=== PATIENT | female | born 1995 | race Caucasian/White ===

== ENCOUNTER 2019-03-08 17:55 | Emergency (ER) | payer OTHER, SELFPAY ==
[2019-03-08 18:07] VITALS: BP 119/80; TEMP 36.7; BMI 19.8
[2019-03-08 18:10] VITALS: BP 119/80; PULSE 82; RESP 14; TEMP 36.7; O2SAT 100; BMI 19.8
--- NOTE | 2019-03-08 18:13 | DI.RAD.S_ITS ---
PROCEDURE: XR ANKLE LT MIN 3V INDICATIONS: L ankle pain post fall TECHNIQUE: 3 views of the ankle were acquired. COMPARISON: None. FINDINGS: Bones: No fractures or dislocations. Ankle mortise is normally aligned. No suspicious bony lesions. Soft tissues: No tibiotalar joint effusion. Achilles tendon appears normal. IMPRESSION: No acute ankle fracture or dislocation. Dictated by: Armando Jimenez M.D. on 03/08/2019 at 18:27 Approved by: Armando Jimenez M.D. on 03/08/2019 at 18:28
--- NOTE | 2019-03-08 19:46 | ED.LOWEXIN ---
HPI - Extremity Injury (Lower) <OVI Saul - Last Filed: 03/08/19 19:57> General Chief Complaint: Extremity Injury, Lower Stated Complaint: fall down stairs at work Time Seen by Provider: 03/08/19 19:03 Source: patient Mode of arrival: ambulatory Limitations: no limitations History of Present Illness HPI Narrative: 24-year-old healthy female presents emergency department today complaining of left ankle pain after a fall. She states she slipped and fell down about 7 steps. She complains of a dull aching 5/10 left ankle pain that was worse with movement. She was not able to bear weight on her ankle after the fall. Patient has noted bruising and swelling to the lateral aspect of her ankle. She denies any head trauma, fevers, leg pain, knee pain, abdominal pain, nausea, vomiting, loss of consciousness, or other injuries. Related Data Allergies Allergy/AdvReac Type Severity Reaction Status Date / Time amoxicillin Allergy Verified 03/08/19 18:07 Penicillins Allergy Verified 03/08/19 18:07 Review of Systems <OVI Saul - Last Filed: 03/08/19 19:57> Review of Systems Narrative: REVIEW OF SYSTEMS: GENERAL: Denies fever or chills. HENT: No head trauma. EYES: No double vision or vision loss. CARDIOVASCULAR: No chest pain or syncope. RESPIRATORY: No shortness of breath or cough. GASTROINTESTINAL: No nausea, vomiting, diarrhea, or constipation. GENITOURINARY: No flank pain or dysuria. MUSCULOSKELETAL: Complains of left buttock ANCA pain, see HPI. INTEGUMENTARY: No rash, lesions, or pruritus. NEURO: No numbness, tingling. PSYCH: No behavior or mood changes. PFSH <OVI Saul - Last Filed: 03/08/19 19:57> Medical History No significant past surgical history (Acute) Social History Smoking Status: Never smoker Social History Smoking Status: Never smoker Exam <OVI Saul - Last Filed: 03/08/19 19:57> Initial Vital Signs Initial Vital Signs: Vital Signs Temperature 98.1 F 03/08/19 18:07 Blood Pressure 119/80 03/08/19 18:07 PHYSICAL EXAMINATION: GENERAL: Well groomed, alert, and cooperative. Answers questions promptly and appropriately. Vital signs noted. HENT: Normocephalic, atraumatic. EYES: Symmetrical, sclera white, no periorbital swelling. RESPIRATORY: Normal respiratory rate, trachea midline, airway patent. No stridor, nasal flaring or accessory muscle use. MUSCULOSKELETAL: Tenderness on palpation to lateral malleolus, surroundings swelling and ecchymosis. Pain was reproduced with inversion of ankle. No deformities noted. Normal gait and coordination. Equal tone and mass bilaterally. EXTREMITIES: CMS intact. Pedal Pulses 2+ and equal bilaterally. SKIN: Warm, dry, soft, appropriate color for ethnicity. No lesions, rashes, or wounds. NEURO: Alert and Oriented X 3. No sensory deficits. PSYCH: Appropriate affect and mood. <Yves Snowden DO - Last Filed: 03/08/19 23:22> Initial Vital Signs Initial Vital Signs: Vital Signs Temperature 98.1 F 03/08/19 18:07 Blood Pressure 119/80 03/08/19 18:07 Procedures <OVI Saul - Last Filed: 03/08/19 19:57> Orthopedic Splinting/Casting Injury #1: Side: left Lower Extremity Injury Location: ankle Lower Extremity Immobilizer: Huber wrap Other Orthopedic Equipment: crutches Post splinting neuro exam: intact Post splinting vascular exam: intact Placed by: Provider Course <OVI Saul - Last Filed: 03/08/19 19:57> Course Course Narrative: Patient was given an Huber bandage and crutches help with pain. Orders Ordered: ED Orders 03/08/19 18:13 XR ankle LT min 3V Stat Vital Signs Vital signs: Vital Signs - 8 hr 03/08/19 18:07 03/08/19 18:10 Temperature 98.1 F 98.1 F Pulse Rate 82 Respiratory Rate 14 Blood Pressure 119/80 119/80 Pulse Oximetry 100 <Yves Snowden DO - Last Filed: 03/08/19 23:22> Orders Ordered: ED Orders 03/08/19 18:13 XR ankle LT min 3V Stat Vital Signs Vital signs: Vital Signs - 8 hr 03/08/19 18:07 03/08/19 18:10 Temperature 98.1 F 98.1 F Pulse Rate 82 Respiratory Rate 14 Blood Pressure 119/80 119/80 Pulse Oximetry 100 [facility] - Extremity Injury (Lower) <Jerica OkeefeOVI - Last Filed: 03/08/19 19:57> Medical Records Attestation: I reviewed the patient's medical records. Lab Data Attestation: I reviewed the patient's lab results. Imaging Data Ankle XR: Radiologist's impression: [address] [address] XRay Report Signed Patient: Lissette Pisano PMR#: [id number] : 1995Acct:[id number] Age/Sex: 24 / FDate of Service: 03/08/19 Loc: ED Accession Number: [id number] Procedure: XR ankle LT min 3V Ordering Provider: Yves Snowden D.O. PROCEDURE: XR ANKLE LT MIN 3V INDICATIONS: L ankle pain post fall TECHNIQUE: 3 views of the ankle were acquired. COMPARISON: None. FINDINGS: Bones: No fractures or dislocations. Ankle mortise is normally aligned. No suspicious bony lesions. Soft tissues: No tibiotalar joint effusion. Achilles tendon appears normal. IMPRESSION: No acute ankle fracture or dislocation. Dictated by: Armando Jimenze M.D. on 03/08/2019 at 18:27 Approved by: Armando Jimenez M.D. on 03/08/2019 at 18:28 [facility] Narrative Medical decision making narrative: Differential includes sprain (most likely due to tenderness, difficulty weight-bearing, mechanism of injury), contusion, and fracture (less likely due to negative x-ray.) Strict return precautions given and follow-up instructions discussed. Discharge Plan Departure Patient Disposition: Home Clinical Impression: Ankle sprain and strain Discharge Date/Time: 03/08/19 19:40 Instructions: Ankle Sprain Activity Restrictions/Additional Instructions: Thank you for entrusting me with your care today. As discussed, your x-rays are negative for any fractures. You have sprained your ankle. You may use the crutches or Huber bandage as needed for pain. Follow up with your primary care provider in the next 10-14 days if your symptoms do not begin to get a little better. You may take ibuprofen 400-600 mg every 6 hours for the next 3 days to decrease inflammation. Return to the emergency department if he develops chest pain, shortness of breath, syncope, seizures, or any other concerning symptoms. <Yves Snowden, DO - Last Filed: 03/08/19 23:22> Sign Out Provider Sign Out Attestation: I was available for consultation during this patient's emergency department encounter
== END 2019-03-08 19:40 | disposition home or self-care (01) ==
PROVIDERS: Emergency Provider Nurse Practitioner
DX: S93.402A Sprain of unspecified ligament of left ankle, initial encounter (principal); W10.8XXA Fall (on) (from) other stairs and steps, initial encounter; Y99.0 Civilian activity done for income or pay
CPT/HCPCS: 73610; 99282; 99283

== ENCOUNTER → 2019-06-05 09:15 | Outpatient (CLI) | payer OTHER, SELFPAY ==
--- NOTE | 2019-06-05 | DI.RAD.S_ITS ---
PROCEDURE: XR ANKLE LT MIN 3V INDICATIONS: LEFT ANKLE PAIN TECHNIQUE: 3 views of the ankle were acquired. COMPARISON: [facility], CR, XR ANKLE LT MIN 3V, 03/08/2019, 18:12. FINDINGS: Bones: No fractures or dislocations. Ankle mortise is normally aligned. No suspicious bony lesions. Soft tissues: No tibiotalar joint effusion. Achilles tendon appears normal. IMPRESSION: Normal for age, source of current pain after trauma symptoms is not seen. Dictated by: Arnaud Lewis M.D. on 06/05/2019 at 9:48 Approved by: Arnaud Lewis M.D. on 06/05/2019 at 9:49
== END ==
PROVIDERS: PCP Nurse Practitioner Family; Visit Provider Nurse Practitioner Family
DX: M25.572 Pain in left ankle and joints of left foot (principal)
CPT/HCPCS: 73610

== ENCOUNTER → 2019-07-02 17:40 | Outpatient (CLI) | payer OTHER, SELFPAY ==
--- NOTE | 2019-07-02 | DI.MRI.S_ITS ---
PROCEDURE: MR ANKLE LT WO CON INDICATIONS: Pain in left ankle and joints of left foot TECHNIQUE: Noncontrast sagittal T1 spin echo and T2 fast spin echo with fat saturation, axial proton density fast spin echo and T2 fast spin echo with fat saturation, coronal T1 spin echo and T2 fast spin echo with fat saturation through the ankle/hindfoot. COMPARISON: None. FINDINGS: Image quality: Excellent. Bones and joints: No discrete fracture seen. Focal marrow edema involving the medial malleolus No specific evidence for hind foot coalition. No evidence of osteochondral defect. Tibiotalar joint effusion Medial structures: The posterior tibialis, flexor digitorum longus, and flexor hallucis longus tendons are intact. Mild posterior tibialis tenosynovitis The posterior tibial neurovascular bundle appears normal within the tarsal tunnel, without extrinsic mass effect. The deep layer (anterior and posterior tibiotalar ligaments) and superficial layer (tibionavicular, tibiospring, and tibiocalcaneal ligaments) of the deltoid ligament appear normal. The spring ligament components (superomedial calcaneonavicular, medioplantar oblique calcaneonavicular, and inferoplantar longitudinal ligaments) are intact. Lateral structures: The anterior talofibular ligament is markedly thickened and there is diffuse soft tissue edema. There appear to be some intact fibers Calcaneofibular and posterior talofibular ligaments appear intact More superiorly, the anterior and posterior tibiofibular ligaments appear intact, as is the intermalleolar ligament. The tibiofibular syndesmosis is normal in width at 2 mm or less. The peroneus longus and brevis tendons demonstrate normal location and morphology. There is minimal peroneal tenosynovitis Adjacent bony peroneal tubercle and retrotrochlear prominence are normal in size. The sinus tarsi demonstrates normal fatty signal, without edema, fibrosis, or cyst formation. Visualized sinus tarsi components (cervical ligament, interosseous talocalcaneal ligament, roots of the inferior extensor retinaculum) appear normal. The calcaneonavicular and calcaneocuboid components of the bifurcate ligament appear intact. The dorsal calcaneocuboid ligament appears intact. Anterior structures: The tibialis anterior, extensor hallucis longus, and extensor digitorum longus tendons appear intact. The dorsal talonavicular ligament appears intact. Posterior and plantar structures: Achilles tendon is intact. Medial and lateral bands of the plantar fascia are of normal thickness. No abductor digiti quinti muscle atrophy to suggest López neuropathy. IMPRESSION: Partial rupture/sprain of the anterior talofibular ligament. Focal marrow edema involving the medial malleolus, which could represent acute marrow contusion. Tibiotalar joint effusion Mild posterior tibialis tenosynovitis Dictated by: Bridger Simeon M.D. on 07/03/2019 at 9:38 Approved by: Bridger Simeon M.D. on 07/03/2019 at 10:00
== END ==
PROVIDERS: Family Provider Nurse Practitioner Family; PCP Nurse Practitioner Family; Visit Provider Orthopaedic Surgery Foot and Ankle Surgery
DX: M25.572 Pain in left ankle and joints of left foot (principal); S93.492A Sprain of other ligament of left ankle, initial encounter; M25.472 Effusion, left ankle; M65.872 Other synovitis and tenosynovitis, left ankle and foot
CPT/HCPCS: 73721

== ENCOUNTER 2022-02-09 11:05 | Emergency (ER) | payer OTHER, SELFPAY ==
[2022-02-09] VITALS (20 sets, daily range): BP systolic 92–119; BP diastolic 48–73; PULSE 100–125; RESP 15–23; TEMP 36.4–37.1; O2SAT 93–100; BMI 16.4
[2022-02-09 12:00] LABS: Add Manual Diff / Slide Review NO; Basophils Absolute Auto 0 /uL (0-100); Basophils Percent Auto 0.5 % (0-2); Eosinophils Absolute Auto 500 /uL (0-450); Eosinophils Percent Auto 6.2 % (2-4); Hematocrit 33.9 % (36-46); Hemoglobin 11.3 g/dL (12.0-16.0); Lymphocytes Absolute Auto 1500 /uL (1100-4500); Lymphocytes Percent Auto 19.1 % (25-40); Mean Corpuscular HGB Conc 33.1 % (30-36); Mean Corpuscular Hemoglobin 26.1 PG (26-34); Mean Corpuscular Volume 78.8 fL (80-100); Monocytes Absolute Auto 1300 /uL (0-900); Monocytes Percent Auto 16.4 % (3-14); Neutrophils Absolute Auto 4700 /uL (1500-7000); Neutrophils Percent Auto 57.8 % (50-75); Platelet Count 394 X10^3/uL (150-400); Red Blood Cell Count 4.31 X10^6/uL (4.0-5.2); White Blood Cell Count 8.1 X10^3/uL (4.5-11.0)
[2022-02-09 12:16] LABS: Alanine Aminotransferase 12 IU/L (<35); Albumin 3.9 g/dL (3.5-5.0); Albumin Globulin Ratio 1.1 (1.0-2.8); Alkaline Phosphatase 52 U/L (38-126); Aspartate Aminotransferase 19 IU/L (14-36); BUN Creatinine Ratio 6.2 (6-22); Bilirubin Total 0.2 mg/dL (0.2-1.3); Blood Urea Nitrogen 5 mg/dL (7-17); Calcium 8.4 mg/dL (8.4-10.2); Carbon Dioxide 29 mmol/L (22-32); Chloride 104 mmol/L (98-107); Estimated Glomerular Filt Rate > 60 mL/min (>60); Globulin 3.4 g/dL (1.7-4.1); Glucose 111 mg/dL (70-100); HEMOLYSIS < 15 (0-50); Lipase 56 U/L (23-300); Sodium 140 mmol/L (137-145); Total Protein 7.3 g/dL (6.3-8.2)
--- NOTE | 2022-02-09 12:40 | ED_ITS ---
HPI - Abdominal Pain General Chief Complaint: Abdominal Pain Stated Complaint: Abd pain, bloody stool, fever Time Seen by Provider: 02/09/22 12:23 Mode of arrival: Family Vehicle History of Present Illness HPI narrative: Patient is a healthy 26-year-old female who presents with rectal bleeding ongoing for last 2 weeks. As he was seen evaluated by her primary care provider who did some rectal swabs and set her up for a colonoscopy. She has a colonoscopy scheduled as an outpatient in 2 days. She says she has lost about 5 lb. Every time she eats something she has abdominal pain and has suicide on the toilet. She has been mildly anemic she is not sure if her numbers. This morning however she woke up and was febrile with a temperature of 100? with severe pain. She now is feeling a little bit better Related Data Allergies Allergy/AdvReac Type Severity Reaction Status Date / Time amoxicillin Allergy Verified 02/09/22 11:34 Penicillins Allergy Verified 02/09/22 11:34 Review of Systems Review of Systems Narrative: GENERAL: Denies chills, fatigue, malaise, fever, sweats, travel HEENT: Denies sinus pain, ear pain, sore throat, difficulty swallowing, neck pain RESPIRATORY: Denies dyspnea, cough, wheezing, hemoptysis, sputum. CARDIOVASCULAR: Denies chest pain, palpitations, orthopnea, edema GASTROINTESTINAL: See HPI : Denies dysuria, frequency, incontinence, hematuria, urinary retention, flank pain. MUSCULOSKELETAL: Denies weakness, joint pain, or bony pain SKIN: No rash, no erythema, no pruritus NEUROLOGIC: Denies weakness, dizziness, headache, numbness, change in speech, c onfusion PSYCHIATRIC: No concerning psychosocial issues. 12 point review of systems is negative except for those stated above and HPI Patient History Surgical History No significant past surgical history Social History Smoking Status: Never smoker Smoking Status: Never smoker alcohol intake frequency: holidays/special occasions only Substance Use Type: does not use Exam Initial Vital Signs Initial Vital Signs: Vital Signs Temperature 97.5 F L 02/09/22 11:28 Pulse Rate 125 H 02/09/22 11:28 Respiratory Rate 16 02/09/22 11:28 Blood Pressure 108/73 02/09/22 11:28 Pulse Oximetry 100 02/09/22 11:28 Oxygen Delivery Method 02/09/22 11:28 GENERAL: Alert pleasant 26-year-old female and in no acute distress. HEENT: Head atraumatic,EOMI, pupils reactive, face symmetric, moist mucous membranes CARDIOVASCULAR: Regular rate and rhythm without murmurs, rubs or gallops. RESPIRATORY: Breath sounds equal bilaterally, no wheezes rales or rhonchi. ABDOMEN: Soft, nontender. Normoactive bowel sounds all 4 quadrants. No guarding or rebound. EXTREMITIES: Normal range of motion, no clubbing or edema. Neurovascularly intact NEUROLOGICAL: Alert and oriented x4.Normal gait and speech. SKIN: Warm, dry, no laceration, no petechiae, no rashes or lesions. Course Orders Ordered: ED Orders 02/09/22 12:32 COVID19 -Nasal RAPID/Pre-Proc Stat 02/09/22 12:35 Urine Culture Stat Urine Microscopic Stat 02/09/22 12:46 CT abdomen pelvis w con Stat 02/09/22 15:26 EKG-12 Lead Routine 02/09/22 15:52 CT angio chest PE protocol Stat Discontinued Medications Sodium Chloride (Normal Saline 0.9%) 1,000 mls @ 1,000 mls/hr IV BOLUS ONE Stop: 02/09/22 13:45 Last Infusion: 02/09/22 15:12 Dose: 0 mls/hr Documented By: Admin: 02/09/22 12:54 Dose: 1,000 mls/hr Documented By: SONNY Sodium Chloride (Normal Saline 0.9%) 1,000 mls @ 1,000 mls/hr IV BOLUS ONE Stop: 02/09/22 15:45 Last Infusion: 02/09/22 16:58 Dose: 0 mls/hr Documented By: Admin: 02/09/22 15:12 Dose: 1,000 mls/hr Documented By: RAMON Vital Signs Vital signs: Vital Signs - 8 hr 02/09/22 13:34 02/09/22 14:00 02/09/22 14:30 Pulse Rate 106 H 105 H 108 H Respiratory Rate 17 23 19 Blood Pressure Pulse Oximetry 93 98 97 02/09/22 15:00 02/09/22 15:11 02/09/22 15:11 Pulse Rate 104 H 100 H Respiratory Rate 20 19 Blood Pressure 102/55 L Pulse Oximetry 98 100 02/09/22 15:19 02/09/22 15:19 02/09/22 15:30 Pulse Rate 118 H Respiratory Rate 18 Blood Pressure 112/64 99/58 L Pulse Oximetry 100 02/09/22 15:30 02/09/22 16:00 02/09/22 16:00 Pulse Rate 114 H 105 H Respiratory Rate 21 21 Blood Pressure 92/55 L Pulse Oximetry 100 100 02/09/22 16:21 02/09/22 16:21 02/09/22 16:26 Pulse Rate 108 H 107 H Respiratory Rate 23 21 Blood Pressure 97/48 L Pulse Oximetry 100 99 02/09/22 16:26 02/09/22 16:30 02/09/22 16:30 Pulse Rate 104 H Respiratory Rate 15 Blood Pressure 97/52 L 93/52 L Pulse Oximetry 99 02/09/22 16:47 02/09/22 16:47 02/09/22 16:51 Pulse Rate 110 H Respiratory Rate Blood Pressure 107/59 L 99/58 L Pulse Oximetry 99 02/09/22 16:51 Pulse Rate 109 H Respiratory Rate Blood Pressure Pulse Oximetry 98 MDM - Abdominal Pain Lab Data Result diagrams: 02/09/22 11:51 02/09/22 11:51 Labs: Lab Results 02/09/22 02/09/22 02/09/22 Range/Units 11:51 11:51 11:51 WBC 8.1 (4.5-11.0) X10^3/uL RBC 4.31 (4.0-5.2) X10^6/uL Hgb 11.3 L (12.0-16.0) g/dL Hct 33.9 L (36-46) % MCV 78.8 L (80-100) fL MCH 26.1 (26-34) PG MCHC 33.1 (30-36) % RDW 14.0 (11.6-14.8) % Plt Count 394 (150-400) X10^3/uL Neut % (Auto) 57.8 (50-75) % Lymph % (Auto) 19.1 L (25-40) % Burke % (Auto) 16.4 H (3-14) % Eos % (Auto) 6.2 H (2-4) % Baso % (Auto) 0.5 (0-2) % Neut # (Auto) 4700 (9121-2448) /uL Lymph # (Auto) 1500 (5628-6554) /uL Burke # (Auto) 1300 H (0-900) /uL Eos # (Auto) 500 H (0-450) /uL Baso # (Auto) 0 (0-100) /uL D-Dimer (<500) ng/ml Sodium 140 (137-145) mmol/L Potassium 4.0 (3.4-5.1) mmol/L Chloride 104 (98-107) mmol/L Carbon Dioxide 29 (22-32) mmol/L BUN 5 L (7-17) mg/dL Creatinine 0.81 (0.52-1.04) mg/dL Estimated GFR > 60 (>60) mL/min BUN/Creatinine Ratio 6.2 (6-22) Glucose 111 H (70-100) mg/dL Lactate 1.7 (0.7-2.1) mmol/L Calcium 8.4 (8.4-10.2) mg/dL Total Bilirubin 0.2 (0.2-1.3) mg/dL AST 19 (14-36) IU/L ALT 12 (<35) IU/L Alkaline Phosphatase 52 (38-126) U/L Total Protein 7.3 (6.3-8.2) g/dL Albumin 3.9 (3.5-5.0) g/dL Globulin 3.4 (1.7-4.1) g/dL Albumin/Globulin Ratio 1.1 (1.0-2.8) Lipase 56 (23-300) U/L Procalcitonin (<0.5) ng/mL Urine RBC (0-5/HPF) Urine WBC (0-5/HPF) Ur Squamous Epith Cells (0-5/HPF) Amorphous Sediment Urine Bacteria (None) Ur Culture Indicated? SARS-CoV-2 (PCR) (Negative) 02/09/22 02/09/22 02/09/22 Range/Units 11:51 11:51 12:32 WBC (4.5-11.0) X10^3/uL RBC (4.0-5.2) X10^6/uL Hgb (12.0-16.0) g/dL Hct (36-46) % MCV (80-100) fL MCH (26-34) PG MCHC (30-36) % RDW (11.6-14.8) % Plt Count (150-400) X10^3/uL Neut % (Auto) (50-75) % Lymph % (Auto) (25-40) % Burke % (Auto) (3-14) % Eos % (Auto) (2-4) % Baso % (Auto) (0-2) % Neut # (Auto) (2330-9852) /uL Lymph # (Auto) (3796-5141) /uL Burke # (Auto) (0-900) /uL Eos # (Auto) (0-450) /uL Baso # (Auto) (0-100) /uL D-Dimer 1881 H (<500) ng/ml Sodium (137-145) mmol/L Potassium (3.4-5.1) mmol/L Chloride (98-107) mmol/L Carbon Dioxide (22-32) mmol/L BUN (7-17) mg/dL Creatinine (0.52-1.04) mg/dL Estimated GFR (>60) mL/min BUN/Creatinine Ratio (6-22) Glucose (70-100) mg/dL Lactate (0.7-2.1) mmol/L Calcium (8.4-10.2) mg/dL Total Bilirubin (0.2-1.3) mg/dL AST (14-36) IU/L ALT (<35) IU/L Alkaline Phosphatase (38-126) U/L Total Protein (6.3-8.2) g/dL Albumin (3.5-5.0) g/dL Globulin (1.7-4.1) g/dL Albumin/Globulin Ratio (1.0-2.8) Lipase (23-300) U/L Procalcitonin 0.06 (<0.5) ng/mL Urine RBC (0-5/HPF) Urine WBC (0-5/HPF) Ur Squamous Epith Cells (0-5/HPF) Amorphous Sediment Urine Bacteria (None) Ur Culture Indicated? SARS-CoV-2 (PCR) Negative (Negative) 02/09/22 Range/Units 12:35 WBC (4.5-11.0) X10^3/uL RBC (4.0-5.2) X10^6/uL Hgb (12.0-16.0) g/dL Hct (36-46) % MCV (80-100) fL MCH (26-34) PG MCHC (30-36) % RDW (11.6-14.8) % Plt Count (150-400) X10^3/uL Neut % (Auto) (50-75) % Lymph % (Auto) (25-40) % Burke % (Auto) (3-14) % Eos % (Auto) (2-4) % Baso % (Auto) (0-2) % Neut # (Auto) (9525-7567) /uL Lymph # (Auto) (8930-8735) /uL Burke # (Auto) (0-900) /uL Eos # (Auto) (0-450) /uL Baso # (Auto) (0-100) /uL D-Dimer (<500) ng/ml Sodium (137-145) mmol/L Potassium (3.4-5.1) mmol/L Chloride (98-107) mmol/L Carbon Dioxide (22-32) mmol/L BUN (7-17) mg/dL Creatinine (0.52-1.04) mg/dL Estimated GFR (>60) mL/min BUN/Creatinine Ratio (6-22) Glucose (70-100) mg/dL Lactate (0.7-2.1) mmol/L Calcium (8.4-10.2) mg/dL Total Bilirubin (0.2-1.3) mg/dL AST (14-36) IU/L ALT (<35) IU/L Alkaline Phosphatase (38-126) U/L Total Protein (6.3-8.2) g/dL Albumin (3.5-5.0) g/dL Globulin (1.7-4.1) g/dL Albumin/Globulin Ratio (1.0-2.8) Lipase (23-300) U/L Procalcitonin (<0.5) ng/mL Urine RBC 0-1/hpf (0-5/HPF) Urine WBC 0-1/hpf (0-5/HPF) Ur Squamous Epith Cells 5-10 /hpf H (0-5/HPF) Amorphous Sediment 1+ Urine Bacteria Occasional (0-1) (None) Ur Culture Indicated? Cult not indicated SARS-CoV-2 (PCR) (Negative) Point of care testing: Point of Care Testing Test Results Negative Urine Dip Bedside Urine Glucose Negative Bedside Urine Bilirubin - Negative Bedside Urine Ketone - Negative Urine Specific [place] 1.015 Bedside Urine Occult Blood +/- Bedside Urine pH 6.0 Bedside Urine Protein - Negative Bedside Urine Urobilinogen - Negative Bedside Urine Nitrite - Negative Bedside Urine Leukocytes - Negative Esterase Imaging Data CT scan - abdomen/pelvis: Radiologist's Impression: CT Scan Report Signed Patient: Lissette Pisano MR#: [id number] : 1995 Acct:[id number] Age/Sex: 26 / F Date of Service: 02/09/22 Loc: ED Accession Number: [id number] ?? Procedure: CT abdomen pelvis w con Ordering Provider: Alem Lovett D.O. PROCEDURE:? CT ABDOMEN PELVIS W CON ? INDICATIONS:? ab pain x 2 weeks with bloody stool ? TECHNIQUE:? After the administration of oral and IV contrast, axial sections were acquired from the lung bases to the pubic symphysis.? Coronal and sagittal reformats were performed.? For radiation dose reduction, the following was used:? automated exposure control, adjustment of mA and/or kV according to patient size. ? COMPARISON:? None. ? FINDINGS:? Image quality:? Excellent.? ? Lung bases:? Unremarkable.? ? Heart:? No significant findings. ? ? ABDOMEN: Liver:? Unremarkable.? ? Gallbladder:? Absent.? ? Biliary ducts:? Unremarkable.? ? Pancreas:? Unremarkable.? ? Spleen:? Unremarkable.? ? Adrenal Glands:? Unremarkable.? ? Kidneys and Ureters:? No hydronephrosis.? ? ? Stomach and Bowel:? Stomach is not distended.? No small bowel obstruction.? There is suspected small bowel wall thickening in the left abdomen, ().? There appears to be thickening of the colonic wall at the ascending colon and transverse colon.? There appears to be diffuse colonic mural enhancement. Peritoneum:? There is a small amount of free fluid in the pelvis.? No pneumoperitoneum.? No pneumatosis intestinalis. ? Ventral Wall: ? No hernia.? Abdominal Nodes:? No retroperitoneal or mesenteric adenopathy by size criteria.? Vessels:? Aorta and inferior vena cava are normal in size.? ? PELVIS: Pelvic Organs:? Anteverted uterus. Bladder:? No stones. Pelvic Nodes: No enlarged lymph nodes.? Miscellaneous: No inguinal hernias are seen. ? ? ? Bones:? No suspicious lesion. ? ? IMPRESSION:? 1. Suspect small bowel wall thickening in the left abdomen.? Suspect colonic wall thickening and mucosal enhancement.? Findings are most consistent with an enteritis/colitis. ? 2. There is a small amount of free fluid in the pelvis. ? 3. No small bowel obstruction.? ? ? Dictated by: Christiano Napoles M.D. on 02/09/2022 at 13:43 ? ? Approved by: Christiano Napoles M.D. on 02/09/2022 at 13:50? CT scan - chest: Radiologist's Impression: [facility] [address] [place] [address] CT Scan Report Signed Patient: Lissette Pisano MR#: [id number] : 1995 Acct:[id number] Age/Sex: 26 / F Date of Service: 02/09/22 Loc: ED Accession Number: [id number] ?? Procedure: CT angio chest PE protocol Ordering Provider: Alem Lovett D.O. PROCEDURE:? CT ANGIO CHEST PE PROTOCOL ? INDICATIONS:? tachy very high dimer ? TECHNIQUE:? After the administration of intravenous contrast, 2 mm thick sections acquired from the pulmonary apices to the posterior costophrenic angles.? 3-dimensional maximum intensity projection (MIP) coronal and sagittal reformats were then acquired through the thorax.? For radiation dose reduction, the following was used:? automated exposure control, adjustment of mA and/or kV according to patient size.? ? COMPARISON:? Merged With [facility], CT, CT ABDOMEN PELVIS W CON, 02/09/2022, 13:30. ? FINDINGS:? Image quality:? Excellent.? ? Pulmonary arteries:? Pulmonary arteries are normal in size, and demonstrate no intraluminal filling defects to suggest central pulmonary embolism.? ? Lungs and pleura:? Lungs are clear.? No pleural effusions or pneumothorax.? Central and peripheral airways are patent.? ? Mediastinum:? Heart size is normal, without pericardial effusion.? No mediastinal or hilar adenopathy.? Thoracic aorta is normal in caliber and enhancement.? Esophagus is normal in caliber, without hiatal hernia.? ? Bones and chest wall:? No suspicious bony lesions.? Ribs and thoracic spine appear intact throughout.? Thyroid gland is normal.? No axillary or supraclavicular adenopathy.? Numerous axillary lymph nodes are noted bilaterally, most likely reactive. ? Abdomen:? Visualized upper abdominal solid organs appear normal in the early arterial phase of enhancement.? ? IMPRESSION:? ? 1. No evidence for pulmonary embolism.? ? ? Dictated by: Tasia Berumen M.D. on 02/09/2022 at 16:29? ECG Data Interpretation: Sinus tachycardia rate 123, IL 162, QRS 82, QTC [address] changes MDM Narrative Medical decision making narrative: Patient is tachycardic mildly hypotensive with rectal bleeding. And febrile. Concern for possible infection. Blood surprisingly is overall reassuring. She has no leukocytosis she is mildly anemic which is probably stable. She says she is not sure what her numbers are. She has a normal lactic acid and normal procalcitonin. However despite 2 L of IV fluid she is persistently tachycardic. D-dimer is added found to be elevated. CT angio for PE does not show any pulmonary embolism. She does have gastroenteritis and inflammation on her CT. She is scheduled for an outpatient colonoscopy on Monday. I encouraged her to call of the provider tomorrow for further instructions. She is mildly hypotensive in the ED but is ambulatory to the restroom with out any symptoms. She is not lightheaded or dizzy. Her pain is fairly well controlled. At this time I have no further recommendations. She feels able to go home. Discharge Plan Departure Patient Disposition: Home Clinical Impression: Gastroenteritis Instructions: DI for Viral Gastroenteritis -- Adult, DI for Rectal Bleeding Activity Restrictions/Additional Instructions: *You have been diagnosed with gastroenteritis, rectal bleeding *What to do: At this time please talk with your surgeon about proceeding with colonoscopy on Monday. You do need a colonoscopy. Still recommend stool sample Continue to increase fluid intake as tolerated *Continue to take medications as directed *Follow up with your primary care provider in 2-3 days or call [phone] *Return to ER if you should have increasing pain persistent fever, increased bloody bowel movement or any new, worsening or concerning symptoms Referrals: Sonya Mckeon PA-C [Primary Care Provider] - Visit Report Forms: Patient Portal/API
--- NOTE | 2022-02-09 12:46 | DI.CT.S_ITS ---
PROCEDURE: CT ABDOMEN PELVIS W CON INDICATIONS: ab pain x 2 weeks with bloody stool TECHNIQUE: After the administration of oral and IV contrast, axial sections were acquired from the lung bases to the pubic symphysis. Coronal and sagittal reformats were performed. For radiation dose reduction, the following was used: automated exposure control, adjustment of mA and/or kV according to patient size. COMPARISON: None. FINDINGS: Image quality: Excellent. Lung bases: Unremarkable. Heart: No significant findings. ABDOMEN: Liver: Unremarkable. Gallbladder: Absent. Biliary ducts: Unremarkable. Pancreas: Unremarkable. Spleen: Unremarkable. Adrenal Glands: Unremarkable. Kidneys and Ureters: No hydronephrosis. Stomach and Bowel: Stomach is not distended. No small bowel obstruction. There is suspected small bowel wall thickening in the left abdomen, (2/35). There appears to be thickening of the colonic wall at the ascending colon and transverse colon. There appears to be diffuse colonic mural enhancement. Peritoneum: There is a small amount of free fluid in the pelvis. No pneumoperitoneum. No pneumatosis intestinalis. Ventral Wall: No hernia. Abdominal Nodes: No retroperitoneal or mesenteric adenopathy by size criteria. Vessels: Aorta and inferior vena cava are normal in size. PELVIS: Pelvic Organs: Anteverted uterus. Bladder: No stones. Pelvic Nodes: No enlarged lymph nodes. Miscellaneous: No inguinal hernias are seen. Bones: No suspicious lesion. IMPRESSION: 1. Suspect small bowel wall thickening in the left abdomen. Suspect colonic wall thickening and mucosal enhancement. Findings are most consistent with an enteritis/colitis. 2. There is a small amount of free fluid in the pelvis. 3. No small bowel obstruction. Dictated by: Christiano Napoles M.D. on 02/09/2022 at 13:43 Approved by: Christiano Napoles M.D. on 02/09/2022 at 13:50
[2022-02-09] MEDS: SODIUM CHLORIDE 0.9% 1,000 ML 1000 ML IV ×2 (12:54→15:12)
[2022-02-09 13:00] LABS: Lactate (Lactic Acid) 1.7 mmol/L (0.7-2.1)
[2022-02-09 13:17] LABS: Procalcitonin 0.06 ng/mL (<0.5)
[2022-02-09 13:25] LABS: COVID19 -Nasal RAPID Negative (Negative)
[2022-02-09 13:38] LABS: RBC Urine 0-1/HPF (0-5/HPF); WBC Urine 0-1/HPF (0-5/HPF)
[2022-02-09 13:39] LABS: Amorphous Sediment Urine 1+; Bacteria Urine Occasional (0-1); Culture Indicated Urine Cult Not Indicated; Squamous Epithelial Cell Urine 5-10 /HPF (0-5/HPF)
--- NOTE | 2022-02-09 15:19 | PC.NURSE ---
Pt reports new onset, 5/10 chest pressure that came on suddenly while resting. Provider notified. STAT EKG ordered.
[2022-02-09 15:38] LABS: D Dimer 1881 ng/ml (<500)
--- NOTE | 2022-02-09 15:52 | DI.CT.S_ITS ---
PROCEDURE: CT ANGIO CHEST PE PROTOCOL INDICATIONS: tachy very high dimer TECHNIQUE: After the administration of intravenous contrast, 2 mm thick sections acquired from the pulmonary apices to the posterior costophrenic angles. 3-dimensional maximum intensity projection (MIP) coronal and sagittal reformats were then acquired through the thorax. For radiation dose reduction, the following was used: automated exposure control, adjustment of mA and/or kV according to patient size. COMPARISON: [facility], CT, CT ABDOMEN PELVIS W CON, 02/09/2022, 13:30. FINDINGS: Image quality: Excellent. Pulmonary arteries: Pulmonary arteries are normal in size, and demonstrate no intraluminal filling defects to suggest central pulmonary embolism. Lungs and pleura: Lungs are clear. No pleural effusions or pneumothorax. Central and peripheral airways are patent. Mediastinum: Heart size is normal, without pericardial effusion. No mediastinal or hilar adenopathy. Thoracic aorta is normal in caliber and enhancement. Esophagus is normal in caliber, without hiatal hernia. Bones and chest wall: No suspicious bony lesions. Ribs and thoracic spine appear intact throughout. Thyroid gland is normal. No axillary or supraclavicular adenopathy. Numerous axillary lymph nodes are noted bilaterally, most likely reactive. Abdomen: Visualized upper abdominal solid organs appear normal in the early arterial phase of enhancement. IMPRESSION: 1. No evidence for pulmonary embolism. Dictated by: Tasia Berumen M.D. on 02/09/2022 at 16:29 Approved by: Tasia Berumen M.D. on 02/09/2022 at 16:32
== END 2022-02-09 16:59 | disposition home or self-care (01) ==
PROVIDERS: Emergency Provider Emergency Medicine; Family Provider Nurse Practitioner Family; PCP Physician Assistant Medical
DX: K52.9 Noninfective gastroenteritis and colitis, unspecified (principal); R00.0 Tachycardia, unspecified; I95.9 Hypotension, unspecified; Z20.822 Contact with and (suspected) exposure to COVID-19
CPT/HCPCS: 36415; 71275; 74177; 80053; 81003; 81015; 81025; 83605; 83690; 84145; 85025; 85379; 87086; 87635; 93005; 93010; 96360; 96361; 99284; C9803; Q9967